=== PATIENT | female | born 1985 | race African-American/Black ===

== ENCOUNTER 2020-07-22 14:42 | Emergency (ER) | payer OTHER ==
[~2020-07-22] VITALS: Ht 167.6 cm; Wt 81.7 kg
[~2020-07-22 14:42] MED LIST: AMOXICILLIN 50500 M1 PO; ATIVAN0.5 MG PO; BENADRYL25 MG PO; DOXYCYCLINE 10100 MG PO; HYDROCODONE-AP1 EAC6 PO; KEFLEX500 MG PO; MEDROL DOSPAK21 TA1 PO; NOHOMEMEDICATIONS; PEPCID20 MG PO; PREDNISONE 10 M10 M1 PO; PREDNISONE 20 M20 MG PO; TRAMADOL 50 MG50 MG PO; TRIAMCINOLONE A80 G2 TOP; TYLENOL325 MG PO; ULTRAM 50MG TAB50 MG PO; VISTARIL 25 MG25 M1 PO
[2020-07-22 15:08] LABS: ABSOLUTE NEUTROPHILS 6.5 thou/uL (1.4-8.2); BASOPHILS 0.4 % (0.0-2.0); EOSINOPHILS 0.2 % (0.0-3.0); HEMATOCRIT 33.3 % (37.0-47.0); LYMPHOCYTES 32.5 % (24.0-44.0); MCH 24.9 pg (26.0-34.0); MCV 75.4 fL (80.0-100.0); MONOCYTES 5.6 % (1.0-8.0); PLATELET COUNT 357 thou/uL (150-400); POLYS 61.3 % (36.0-66.0); RBC 4.42 mil/uL (4.20-5.00); RDW 19.4 % (10.5-14.5); WBC 10.5 thou/uL (4.0-11.0)
[2020-07-22 15:16] LABS: ANION GAP 12 mmol/L (7-16); BUN 17 mg/dL (7-18); CALCIUM 9.2 mg/dL (8.5-10.1); CHLORIDE 106 mmol/L (98-107); CO2 25 mmol/L (21-32); CREATININE 0.9 mg/dL (0.6-1.0); GLUCOSE 134 mg/dL (74-106); SODIUM 143 mmol/L (136-145)
[2020-07-22 15:26] LABS: ALBUMIN 4.1 g/dL (3.4-5.0); SGOT 20 U/L (15-37); SGPT 31 U/L (14-59); TOTAL BILIRUBIN 0.3 mg/dL (0.2-1.0); TOTAL PROTEIN 8.7 g/dL (6.4-8.2); TROPONIN-I <0.06 ng/mL (<0.06)
[2020-07-22 16:05] VITALS: BP 163/104
[2020-07-22] MEDS ORDERED: LISINOPRIL20 MG PO (16:43)
--- NOTE | 2020-07-23 06:59 | EKG ---
[place] [address] [facility] [place] [address] ELECTROCARDIOGRAM REPORT Name: GENEVA SUERO Room #: DEP Elaine#: [id number] Admission: 07/22/20 Attend Phys: Discharge: 07/22/20 Date of : 85 Report #: [id number] [facility] ED Test Date: 2020-07-22 Test Time: 14:48:43 Pat Name: GENEVA SUERO Department: Room: Gender: F Vamp Seamer: MANUELITO : 1985 Requested By: Pushpa Valle Order Number: [id number] MD: Shahzad Gleason Measurements Intervals [place] Rate: 86 P: 6 MO: 155 QRS: 25 QRSD: 82 T: 11 QT: 362 QTc: 433 Interpretive Statements Sinus rhythm Left atrial enlargement RSR' in V1 or V2, probably normal variant Borderline T wave abnormalities No previous ECG available for comparison Electronically Signed On 07-23-2020 6:59:15 CDT by Shahzad Gleason [email or web address] <ELECTRONICALLY SIGNED> By: Shahzad Gleason MD, [facility] 07/23/20 0659 [id number] Shahzad Gleason MD, FACC /EPI
== END 2020-07-22 16:43 | disposition home or self-care (01) ==
LOC: ER 14:42
PROVIDERS: Emergency Medicine
DX: R07.9 Chest pain, unspecified (principal); I10 Essential (primary) hypertension; Z88.1 Allergy status to other antibiotic agents